=== PATIENT | female | born 1965 | race Caucasian/White ===

== ENCOUNTER → 2016-09-27 | Outpatient (CLI) | payer OTHER ==
[~2016-09-27] MED LIST: IOHEXOL 240 MG/ML 50ML VIAL. PO ONE; IOHEXOL 300 MG/ML 75 ML VIAL IV ONE; LACT1CAP6 PO; METO25TA4 PO
--- NOTE | 2016-09-27 10:26 | RAD ---
Indication breast malignancy. Malignant markers increasing. Staging. Assess for potential metastatic disease. Imaging through the chest, abdomen and pelvis was performed. 60 cc of Omnipaque 300 was administered intravenously. Oral contrast was also administered. No prior CT imaging of the chest is available. The abdomen is compared to an examination 03/16/2014. CT chest: Findings Bilateral breast implants are noted. The thoracic aorta appears unremarkable. There are few mediastinal lymph nodes. Definite pathologic hilar or mediastinal adenopathy is not seen. No acute parenchymal infiltrate is seen. A dominant soft tissue mass in either lung is not seen. Definite evidence of metastatic disease to the chest is not seen. CT abdomen and pelvis: Findings. The liver and spleen appear unremarkable. The gallbladder appears grossly normal. No pancreatic adrenal or renal anomaly is seen. There is no significant central or retroperitoneal adenopathy. Evidence of metastatic disease in the abdomen is not seen. The pelvis is unremarkable. No acute or significant finding is seen. IMPRESSION: No acute finding seen in the chest, abdomen or pelvis. No definite evidence of metastatic disease PQRS Compliance Statement: One or more of the following individualized dose reduction techniques were utilized for this examination: 1. Automated exposure control 2. Adjustment of the mA and/or kV according to patient size 3. Use of iterative reconstruction technique
--- NOTE | 2016-09-27 12:48 | RAD ---
Indication breast cancer. Staging. Old body static images were obtained. 25 mCi of technetium labeled MDP was administered. Note is made of a previous examination 04/28/2005 which was interpreted as normal. The radiopharmaceutical is symmetrically distributed throughout the visualized bony structures. No abnormal uptake, to suggest metastatic disease, is seen. Normal activity is seen in the kidneys and urinary bladder. IMPRESSION: Normal study.
== END | disposition home or self-care (01) ==
LOC: NM 07:54
PROVIDERS: ATTEND Internal Medicine Hematology & Oncology
DX: C50.919 Malignant neoplasm of unspecified site of unspecified female breast (principal)
CPT/HCPCS: 71260; 74177; 78306; 96374; A9503; Q9966; Q9967